=== PATIENT | female | born 1940 | race Caucasian/White ===

== ENCOUNTER → 2016-09-16 | Outpatient (CLI) | payer MEDICARE, OTHER ==
--- NOTE | 2016-09-16 11:01 | XR ---
Lumbosacral spine HISTORY: Back pain with radiation down right side 5 views of the lumbosacral spine No comparisons Bone mineralization is reduced. There is no spondylolysis. No spondylolisthesis. Loss of disc height greatest at L4-5 with associated vacuum phenomenon, endplate sclerosis and spondylosis. Sclerosis pre sent in the posterior elements. There are dense vascular calcifications. IMPRESSION: Degenerative disc disease, facet arthropathy.
--- NOTE | 2016-09-16 11:03 | XR ---
Right hip HISTORY: Back pain radiating down right side 2 views of the right hip No comparisons Bone mineralization, joint spaces and alignment are maintained. Soft tissues within normal limits. IMPRESSION: Normal right hip
--- NOTE | 2016-09-16 11:05 | XR ---
Right knee HISTORY: Pain radiating down right lower extremity 4 views of the right knee No comparisons Patient is status post open reduction internal fixation for proximal right tibial fracture. Bone mine ralization is reduced. Alignment is maintained. Some irregularity noted at the tibial plateau lateral ly. There is some widening of the joint space bilaterally. No evident joint effusion. IMPRESSION: Posttraumatic, postop changes. Osteopenia.
--- NOTE | 2016-09-16 11:05 | XR ---
Right ankle HISTORY: Pain 3 views of the right ankle No comparisons Bone mineralization mildly reduced. Alignment and joint spaces are maintained. No significant soft ti ssue swelling. Small ossific density distal to the medial malleolus is well-corticated and is likely due to remote trauma. IMPRESSION: No acute abnormality. Additional findings above.
== END ==
LOC: RADXRMAIN 09:34
PROVIDERS: ATTEND Family Medicine
DX: M51.36 Other intervertebral disc degeneration, lumbar region (principal); M46.86 Other specified inflammatory spondylopathies, lumbar region; M25.551 Pain in right hip; M85.80 Other specified disorders of bone density and structure, unspecified site; Z79.899 Other long term (current) drug therapy; M25.571 Pain in right ankle and joints of right foot
CPT/HCPCS: 72110; 73502

== ENCOUNTER → 2016-11-30 | Outpatient (CLI) | payer MEDICARE, OTHER ==
[~2016-11-30] MED LIST: SODIUM CHLORIDE 0.9% 250 ML in EMPTY BAG 1 BAG IV PRN; SODIUM CHLORIDE 0.9% 500 ML in EMPTY BAG 1 BAG IV PRN; ZOLEDRONIC ACID 5 MG in SODIUM CHLORIDE 0.9% 100 ML IV NR
[2016-11-30 10:37] VITALS: BP 175/81; PULSE 82; RESP 16; TEMP 98.2
== END ==
LOC: PROCWHC3 09:42
PROVIDERS: ATTEND Family Medicine
DX: M81.0 Age-related osteoporosis without current pathological fracture (principal)
CPT/HCPCS: 96365; J3489

== ENCOUNTER 2020-08-27 20:49 | Emergency (ER) | payer MEDICARE, OTHER ==
--- NOTE | 2020-08-27 22:51 | ED ---
URI HPI - General Chief Complaint: Upper Respiratory Infection Stated Complaint: covid exposure Time Seen by Provider: 08/27/20 21:29 Source: patient Mode of arrival: ambulatory Limitations: no limitations - History of Present Illness Initial Comments: Patient is a 79-year-old female, with history of hypertension, presenting to the emergency department requesting Covid testing. Patient states she was in the ER today with her who tested positive for Covan and she was urged to get tested herself. Patient states last week she did have some minor symptoms including a sore throat, fatigue and some body aches but thought it was because she has not been sleeping very well. Patient states over the last 2 days she did get a lot more sleep and feels better. Currently she has no complaints. She denies any chest pain, no shortness of breath, no cough. She denies any nausea or vomiting. States she has been eating well. She has no further complaints at this time. Upon arrival to the ER, her vital signs are stable. - Related Data Allergies Allergy/AdvReac Type Severity Reaction Status Date / Time Iodine and Iodide Containing Allergy Rash/Hives Verified 08/27/20 20:56 Produc Penicillins Allergy Anaphylaxis Verified 08/27/20 20:56 Review of Systems ROS Statement: Those systems with pertinent positive or pertinent negative responses have been documented in the HPI. ROS Other: All systems not noted in ROS Statement are negative. Past Medical History Past Medical History: Cancer, Hypertension Additional Past Medical History / Comment(s): osteoporosis. Reynaud's. Breast cancer x 2. hypoglycemia History of Any Multi-Drug Resistant Organisms: None Reported Past Surgical History: Adenoidectomy, Bladder Surgery, Section, Hysterectomy, Orthopedic Surgery, Tonsillectomy Additional Past Surgical History / Comment(s): bilateral breast lumpectomy. bladder suspension. R knee surgery. R wrist fracture - no surgery. R ankle fracture - no surgery Past Psychological History: No Psychological Hx Reported Smoking Status: Never smoker Past Alcohol Use History: None Reported Past Drug Use History: None Reported General Exam - General Exam Comments Initial Comments: GENERAL: Patient is well-developed and well-nourished. Patient is nontoxic and in no acute distress. HEAD: Atraumatic, normocephalic. EYES: Pupils equal round and reactive to light, extraocular movements intact, sclera anicteric, conjunctiva are normal. Eyelids were unremarkable. ENT: TMs normal, nares patent, oropharynx clear without exudates. Moist mucous membranes. NECK: Normal range of motion, supple without lymphadenopathy or JVD. LUNGS: Unlabored respirations. Breath sounds clear to auscultation bilaterally and equal. No wheezes rales or rhonchi. HEART: Regular rate and rhythm without murmurs, rubs or gallops. ABDOMEN: Soft, nontender, normoactive bowel sounds. No guarding, no rebound. No masses appreciated. : Deferred MUSCULOSKELETAL: Normal extremities with adequate strength and normal range of motion, no pitting or edema. No clubbing or cyanosis. NEUROLOGICAL: Patient is alert and oriented x 3. Motor and sensory are also intact. Cranial nerves II through XII grossly intact. Symmetrical smile. Normal speech, normal gait. PSYCH: Normal mood, normal affect. SKIN: Warm, Dry, normal turgor, no rashes or lesions noted. Limitations: no limitations Course Vital Signs 08/27/20 08/27/20 08/28/20 20:50 23:15 00:25 Temperature 98.1 F 98.2 F 97.8 F Pulse Rate 80 69 84 Respiratory 20 18 18 Rate Blood Pressure 162/66 160/90 176/85 O2 Sat by Pulse 99 100 99 Oximetry Medical Decision Making - Medical Decision Making Patient is a well-appearing 79-year-old here for Covid testing. Her tested positive today and she was urged to get tested herself. Her rapid Covid is positive. Patient is currently asymptomatic but did have a few symptoms a few days ago. Her vital signs are stable, her exam is unremarkable. She does meet qualifications for BAM infusion, she does agree to this. She received this infusion. Patient developed a mild headache, mild nausea, Tylenol and zofran was given. Patient is stable for discharge. She can follow-up with her regular doctor. Return parameters were discussed with the patient she verbalized understanding. Case discussed with Dr. Parks. - Lab Data Lab Results 08/27/20 Range/Units 20:58 Coronavirus (PCR) Detected A (Not Detectd) Disposition Clinical Impression: COVID-19 Disposition: HOME SELF-CARE Condition: Stable Instructions (If sedation given, give patient instructions): Coronavirus Disease 2019 (COVID-19) Additional Instructions: Please return to the Emergency Department if symptoms worsen or any other concerns. Follow-up with your PCP. Is patient prescribed a controlled substance at d/c from ED?: No Referrals: Juan A Garg DO [Primary Care Provider] - 1-2 days Time of Disposition: 00:44
[2020-08-27] MEDS ORDERED: BAMLANIVIMAB (EUA) 700 MG, ETESEVIMAB (EUA) 1,400 MG in SODIUM CHLORIDE 0.9% 50 ML IVPB ONE (23:00)
[2020-08-27 23:23] VITALS: RESP 18
[2020-08-28 00:27] VITALS: PULSE 84
[2020-08-28] MEDS ORDERED: ONDANSETRON ODT 4 MG TAB PO STA (00:38)
[2020-08-28] MEDS ORDERED: ACETAMINOPHEN TAB 500 MG TAB PO STA (00:38)
[2020-08-28 01:34] VITALS: BP 172/71; TEMP 98
== END 2020-08-28 01:34 | disposition home or self-care (01) ==
LOC: EC 20:49
DX: U07.1 COVID-19 (principal); I10 Essential (primary) hypertension; Z85.3 Personal history of malignant neoplasm of breast; Z88.0 Allergy status to penicillin
CPT/HCPCS: 87635; 99284; 96365; Q0245

== ENCOUNTER 2020-08-29 12:24 | Emergency (ER) | payer MEDICARE, OTHER ==
[2020-08-29 12:47] VITALS: TEMP 97.5
[2020-08-29] MEDS ORDERED: ONDANSETRON 4 MG/2 ML VIAL IVP STA (15:11)
[2020-08-29] MEDS ORDERED: ACETAMINOPHEN TAB 500 MG TAB PO STA (15:11)
[2020-08-29] MEDS ORDERED: KETOROLAC 15 MG/ML 1 ML VIAL IVP STA (15:11)
[2020-08-29] MEDS ORDERED: SODIUM CHLORIDE 0.9% 500 ML 500 ML IV STA (15:11)
--- NOTE | 2020-08-29 15:14 | ED ---
General Adult HPI - General Source: patient Mode of arrival: wheelchair Limitations: no limitations <Clayton Onofre - Last Filed: 08/29/20 17:49> <Sabiha Parks - Last Filed: 09/02/20 02:33> - General Chief complaint: Headache Stated complaint: COVID +, HX BAM, weakness Time Seen by Provider: 08/29/20 14:44 - History of Present Illness Initial comments: 79-year-old female with a past medical history of remote breast cancer, osteoporosis, hypertension presents to the emergency room for a chief complaint of headache. Patient reports that she has coronavirus. Patient reports she does the +2 days ago. She thinks her symptoms started about a week ago. Patient did receive antibody infusion 2 days ago. However patient states her body aches and headache or worsening. States that she is feeling nauseous as well and doesn't have an appetite. she states "my chest is fine." She denies shortness of breath or chest pain. Patient also reports that she hurt her back. She was turning to push her 's wheelchair and had to lift it which caused a strain in her back in the past few days. She denies bladder or bowel changes, saddle anesthesia, weakness of the lower extremities. Patient has no other complaints at this time including shortness of breath, chest pain, abdominal pain, or visual changes. (Clayton Onofre) - Related Data Home Medications Medication Instructions Recorded Confirmed Aspirin EC [Ecotrin Low Dose] 81 mg PO DAILY 08/29/20 08/29/20 Atorvastatin [Lipitor] 10 mg PO HS 08/29/20 08/29/20 Cetirizine HCl [Zyrtec] 10 mg PO HS 08/29/20 08/29/20 Loratadine [Claritin] 10 mg PO DAILY 08/29/20 08/29/20 Metoprolol Succinate [Toprol XL] 25 mg PO HS 08/29/20 08/29/20 Previous Rx's Medication Instructions Recorded HYDROcodone/APAP 5-325MG [Kulm 1 tab PO Q6HR PRN #10 tab 08/29/20 5-325] Ondansetron [Zofran ODT] 4 mg PO Q8HR PRN #15 tab 08/29/20 Allergies Allergy/AdvReac Type Severity Reaction Status Date / Time Iodine and Iodide Containing Allergy Rash/Hives Verified 08/29/20 16:00 Produc Penicillins Allergy Anaphylaxis Verified 08/29/20 16:00 Review of Systems ROS Other: All systems not noted in ROS Statement are negative. <Clayton Onofre P - Last Filed: 08/29/20 17:49> ROS Other: All systems not noted in ROS Statement are negative. <Sabiha Parks A - Last Filed: 09/02/20 02:33> ROS Statement: Those systems with pertinent positive or pertinent negative responses have been documented in the HPI. Past Medical History Past Medical History: Cancer, Hypertension Additional Past Medical History / Comment(s): osteoporosis. Reynaud's. Breast cancer x 2. hypoglycemia, covid + 2020 History of Any Multi-Drug Resistant Organisms: None Reported Past Surgical History: Adenoidectomy, Bladder Surgery, Section, Hysterectomy, Orthopedic Surgery, Tonsillectomy Additional Past Surgical History / Comment(s): bilateral breast lumpectomy. bladder suspension. R knee surgery. R wrist fracture - no surgery. R ankle fracture - no surgery Past Psychological History: No Psychological Hx Reported Smoking Status: Never smoker Past Alcohol Use History: None Reported Past Drug Use History: None Reported <Clayton Onofre P - Last Filed: 08/29/20 17:49> General Exam Limitations: no limitations General appearance: alert, in no apparent distress Head exam: Present: atraumatic, normocephalic, normal inspection Eye exam: Present: normal appearance, PERRL, EOMI. Absent: scleral icterus, conjunctival injection, periorbital swelling ENT exam: Present: normal exam, mucous membranes moist Neck exam: Present: normal inspection. Absent: tenderness, meningismus, lymphadenopathy Respiratory exam: Present: normal lung sounds bilaterally. Absent: respiratory distress, wheezes, rales, rhonchi, stridor Cardiovascular Exam: Present: regular rate, normal rhythm, normal heart sounds. Absent: systolic murmur, diastolic murmur, rubs, gallop, clicks GI/Abdominal exam: Present: soft, normal bowel sounds. Absent: distended, tenderness, guarding, rebound, rigid Extremities exam: Present: other (Strength 5 out of 5 in BLE. Sensation intact. Radial pulses 2+ bilaterally.) Back exam: Present: vertebral tenderness (Minimal.) <Clayton Onofre - Last Filed: 08/29/20 17:49> Course Vital Signs 08/29/20 08/29/20 12:44 18:24 Temperature 97.5 F L Pulse Rate 83 62 Respiratory 18 16 Rate Blood Pressure 134/66 150/79 O2 Sat by Pulse 99 100 Oximetry Medical Decision Making - Lab Data Result diagrams: 08/29/20 15:11 08/29/20 15:11 <Clayton Onofre - Last Filed: 08/29/20 17:49> - Lab Data Result diagrams: 08/29/20 15:11 08/29/20 15:11 <Sabiha Parks - Last Filed: 09/02/20 02:33> - Medical Decision Making Vitals are stable. Patient well-appearing. Patient does have low back pain with point tenderness. CBC unremarkable. CMP does show some evidence of dehydration, patient was given a liter of fluids. X-ray of the chest shows a lobular density right midlung. Recommend CT to exclude neoplasm. This was obtained which showed old granulomatous disease and pleural thickening and calcification consistent with plaque formation. No suspicious masses of the lungs. Patient will follow up with primary care for this. X-ray of the lumbar spine did show a age indeterminate fracture. Therefore a CT of the lumbar spine was obtained. This did show acute mild compression fracture of L3 vertebrae with some mild fragment extension into the spinal canal. There is 25% narrowing of the canal due to the burst component. No weakness in the bilateral legs. No numbness or tingling anywhere from the waist down. No saddle anesthesia. Patient is able to ambulate. At this time I discussed case with Dr. Salcedo who does request patient follows up in the office in 10 days as she is currently COVID Positive. Patient will be given a prescription for TLSO brace. She states her son is around and is currently staying with her, can help her. She currently feeling much better. Headache is much improved. Patient can be discharged home. (Clayton Onofre) I was available for consultation in the emergency department. The history and physical exam were done by the midlevel provider. I was consulted for this patients care. I reviewed the case with the midlevel provider and based on their presentation of the patient, I agree with the assessment, medical decision making and plan of care as documented. Chart was dictated using Dragon dictation software. Attempts were made to correct any dictation errors however some typographical errors may persist. Patient was seen during a national state of emergency due to the Covid-19 pandemic. (Sabiha Parks) - Lab Data Lab Results 08/29/20 08/29/20 Range/Units 15:11 15:11 WBC 9.2 (3.8-10.6) k/uL RBC 3.95 (3.80-5.40) m/uL Hgb 12.3 (11.4-16.0) gm/dL Hct 36.3 (34.0-46.0) % MCV 91.8 (80.0-100.0) fL MCH 31.1 (25.0-35.0) pg MCHC 33.8 (31.0-37.0) g/dL RDW 13.1 (11.5-15.5) % Plt Count 290 (150-450) k/uL MPV 8.4 Neutrophils % 86 % Lymphocytes % 8 % Monocytes % 4 % Eosinophils % 1 % Basophils % 0 % Neutrophils # 7.9 H (1.3-7.7) k/uL Lymphocytes # 0.7 L (1.0-4.8) k/uL Monocytes # 0.4 (0-1.0) k/uL Eosinophils # 0.1 (0-0.7) k/uL Basophils # 0.0 (0-0.2) k/uL Sodium 139 (137-145) mmol/L Potassium 4.4 (3.5-5.1) mmol/L Chloride 106 (98-107) mmol/L Carbon Dioxide 23 (22-30) mmol/L Anion Gap 10 mmol/L BUN 22 H (7-17) mg/dL Creatinine 1.07 H (0.52-1.04) mg/dL Est GFR (CKD-EPI)AfAm 58 (>60 ml/min/1.73 sqM) Est GFR (CKD-EPI)NonAf 51 (>60 ml/min/1.73 sqM) Glucose 104 H (74-99) mg/dL Calcium 10.0 (8.4-10.2) mg/dL Total Bilirubin 0.6 (0.2-1.3) mg/dL AST 30 (14-36) U/L ALT 18 (4-34) U/L Alkaline Phosphatase 110 (38-126) U/L Total Protein 7.2 (6.3-8.2) g/dL Albumin 4.1 (3.5-5.0) g/dL Disposition Is patient prescribed a controlled substance at d/c from ED?: No Time of Disposition: 17:49 <Clayton Onofre - Last Filed: 08/29/20 17:49> <Sabiha Parks - Last Filed: 09/02/20 02:33> Clinical Impression: COVID-19, L3 vertebral fracture, Dehydration Disposition: HOME SELF-CARE Condition: Good Instructions (If sedation given, give patient instructions): Coronavirus Disease 2019 (COVID-19), Vertebral Compression Fracture (ED) Additional Instructions: Please take Kulm as needed for pain. Wear brace while awake and moving Please follow-up with orthopedics. Since you have coronavirus they would like to see you in 10 days. Follow-up with primary care as well. Continue to quarantine otherwise. Return to the emergency room for any worsening symptoms such as wors ening pain, weakness of the legs, or shortness of breath Prescriptions: HYDROcodone/APAP 5-325MG [Kulm 5-325] 1 tab PO Q6HR PRN #10 tab PRN Reason: Pain Ondansetron [Zofran ODT] 4 mg PO Q8HR PRN #15 tab PRN Reason: Nausea Referrals: Juan A Garg DO [Primary Care Provider] - 1-2 days Bob Salcedo MD [STAFF PHYSICIAN] - 1-2 days
[2020-08-29 15:49] LABS: Basophils % (A) 0 %; Eosinophils # (A) 0.1 k/uL (0-0.7); Eosinophils % (A) 1 %; HCT 36.3 % (34.0-46.0); HGB 12.3 gm/dL (11.4-16.0); Lymphocytes # (A) 0.7 k/uL (1.0-4.8); Lymphocytes % (A) 8 %; MCH 31.1 pg (25.0-35.0); MCHC 33.8 g/dL (31.0-37.0); MCV 91.8 fL (80.0-100.0); Mean Platelet Volume 8.4; Monocytes # (A) 0.4 k/uL (0-1.0); Monocytes % (A) 4 %; Neutrophils # (A) 7.9 k/uL (1.3-7.7); Neutrophils % (A) 86 %; Platelet Count 290 k/uL (150-450); RBC 3.95 m/uL (3.80-5.40); RDW 13.1 % (11.5-15.5); WBC 9.2 k/uL (3.8-10.6)
--- NOTE | 2020-08-29 15:54 | XR ---
EXAMINATION TYPE: XR chest 2V DATE OF EXAM: 08/29/2020 COMPARISON: None INDICATION: Pain TECHNIQUE: Frontal and lateral views of the chest are obtained. FINDINGS: The heart size is normal. The pulmonary vasculature is normal. There is a 3.8 x 2.4 cm lobular density within the right mid lung field on the frontal projection. Th is could be pleural calcification. Additional workup however is recommended with CT chest. Couple sma ll nodular densities overlying the left heart could be small granuloma. Multiple surgical clips are w ithin the right axillary region.. IMPRESSION: 1. Lobular density right midlung on the frontal projection. Additional workup with CT chest recommend ed neoplasm is not excluded. 2. No suspicious acute pulmonary changes.
[2020-08-29 15:59] LABS: Albumin 4.1 g/dL (3.5-5.0); Potassium 4.4 mmol/L (3.5-5.1); Total Bilirubin 0.6 mg/dL (0.2-1.3); Total Protein 7.2 g/dL (6.3-8.2)
--- NOTE | 2020-08-29 16:02 | XR ---
EXAMINATION TYPE: XR lumbar spine 2 or 3V DATE OF EXAM: 08/29/2020 Comparison: 09/16/2016 Clinical History: 79-year-old female M54.5, low back pain Findings: 5 lumbar type vertebral bodies. Moderately advanced discogenic degenerative change L4-L5 with loss of disc height and endplate irregularity and sclerosis. Fusiform dilatation of the mid abdominal aorta to 3.0 cm with dense atherosclerotic calcifications throughout. Hypertrophic facet arthropathy mid to lower lumbar spine. Alignment is maintained. There is mild superior endplate deformity at L3 which i s age indeterminate but new from 2017. Impression: 1. Mild superior endplate deformity of L3 represents an age indeterminate endplate fracture but is no daniela to be new from 2017. Correlate for any focal pain at this level. No significant retropulsion into the spinal canal. 2. Progressive moderate to advanced degenerative disc disease L4-L5. Hypertrophic facet arthropathy m id to lower lumbar spine with normal alignment.
--- NOTE | 2020-08-29 16:54 | CT ---
EXAMINATION TYPE: CT lumbar spine wo con DATE OF EXAM: 08/29/2020 COMPARISON: None HISTORY: fracture CT DLP: 601.3 mGycm Automated exposure control for dose reduction was used. Images were obtained from the level of T11-S3 vertebra without contrast. Normal alignment. There is L3 compression deformity with biconcave changes. There is step deformity o n the posterior aspect of the L3 vertebral body consistent with an acute compression fracture. There is 25% loss of height. There is narrowing of L4-5 disc with spur formation. There is no lumbar paraspinal mass. Abdominal aorta is atheromatous. There is no retroperitoneal adams opathy. There are calcified splenic granulomata. There are numerous calcified hepatic granulomata. Sa croiliac joints are intact. I see no focal bone destruction. There is some facet arthropathy at L5-S1 and L4-5. The posterior elements are intact. There is large posterior L5-S1 lumbar disc herniation on the right side extending into the neural for amen. IMPRESSION: Acute mild compression fracture of L3 vertebra with some mild fragment extension into the spinal chelsea l. There is approximate 25% narrowing of the canal due to the burst component. There is large posterior lateral L5-S1 disc herniation into the right side neural foramen. Mild posterior disc bulging at L4-5 with some facet arthropathy and ligamentum flavum thickening. The re is a mild relative L4-5 spinal stenosis.
--- NOTE | 2020-08-29 17:14 | CT ---
EXAMINATION TYPE: CT chest wo con DATE OF EXAM: 08/29/2020 COMPARISON: None HISTORY: mass CT DLP: 152.9 mGycm Automated exposure control for dose reduction was used. Images obtained from the thoracic inlet to the diaphragm without contrast. Thoracic aorta is atheromatous. There are calcified paratracheal lymph nodes. There are densely calci fied left bronchial lymph nodes. There is coronary artery calcification. Heart size is fairly normal. Thoracic aorta shows no aneurysm. There is some 2 x 1 cm area of pleural thickening and calcification on the left anterior chest wall. There is 3 x 1.2 cm area of dense calcification apparently involving the anterior right fourth rib. T his appears to account for the masslike density on the chest x-ray today. There is no pleural effusion. There is no pericardial effusion. There is 1 cm densely calcified granu kingsley in the left lower lobe. The thoracic spine is intact. There is no compression fracture. Sternum is intact. IMPRESSION: Old granulomatous disease. Pleural thickening and calcification consistent with plaque formation on t he left anterior chest wall. No suspicious mass within the lungs. Right breast calcification could relate to old surgery.
[2020-08-29 18:29] VITALS: BP 150/79; PULSE 62; RESP 16
== END 2020-08-29 18:33 | disposition home or self-care (01) ==
LOC: EC 12:24
DX: U07.1 COVID-19 (principal); S32.031A Stable burst fracture of third lumbar vertebra, initial encounter for closed fracture; I25.10 Atherosclerotic heart disease of native coronary artery without angina pectoris; I10 Essential (primary) hypertension; Z88.0 Allergy status to penicillin; X50.9XXA Other and unspecified overexertion or strenuous movements or postures, initial encounter
CPT/HCPCS: 36415; 80053; 85025; 72100; 71046; 72131; 71250; 99284; 96374; 96375; J2405; J1885

== ENCOUNTER → 2020-09-18 | Outpatient (CLI) | payer MEDICARE, OTHER ==
--- NOTE | 2020-09-18 22:20 | NM ---
EXAMINATION TYPE: NM bone scan whole body DATE OF EXAM: 09/18/2020 COMPARISON: CT lumbar spine August 29, 2020 HISTORY: Low back pain for 3 weeks after lifting injury. Spinal stenosis, spondylosis, disc displacem ent, history of breast cancer 2005. Delayed whole-body scanning was performed following the injection of 22.7 mCi Tc 99m MDP. Images acq uired 3 hours post injection. Whole body images in anterior posterior projection along with additiona l spot images of the thorax and abdomen. FINDINGS: There is horizontal increased radiotracer uptake at L3 level corresponding site of acute compression type fracture on recent CT. Small focus of increased radiotracer uptake left lateral mid rib should b e correlated for additional acute posttraumatic fracture. IMPRESSION: As above.
== END | disposition home or self-care (01) ==
LOC: RADNMMAIN 10:46
PROVIDERS: ATTEND Physical Medicine & Rehabilitation
DX: M54.5 Low back pain (principal); Z85.3 Personal history of malignant neoplasm of breast
CPT/HCPCS: 78306; A9503

== ENCOUNTER → 2020-10-25 | Outpatient (CLI) | payer MEDICARE, OTHER ==
[2020-10-25 11:50] LABS: HCT 38.4 % (37.2-46.3); HGB 11.8 g/dL (12.0-15.0); MCH 29.7 pg (27.0-32.0); MCHC 30.7 g/dL (32.0-37.0); MCV 96.7 fL (80.0-97.0); Mean Platelet Volume 11.4 fL (9.5-12.2); Platelet Count 306 X 10*3/uL (140-440); RBC 3.97 X 10*6/uL (4.10-5.20); RDW 13.5 % (11.5-14.5); WBC 5.87 X 10*3/uL (4.50-10.00)
[2020-10-25 12:08] LABS: Albumin 4.4 g/dL (3.80-4.90); Albumin/Globulin Ratio 1.57 (1.60-3.17); Anion Gap 8.9 mmol/L (4.00-12.00); BUN/Creat Ratio 25.56 Ratio (12.00-20.00); Calcium 10.6 mg/dL (8.7-10.3); Carbon Dioxide 29.1 mmol/L (21.6-31.8); Globulin 2.8 g/dL (1.6-3.3); LDL Cholesterol,Calculated 131.4 mg/dL (0.0-131.0); Non-African American GFR(CKD) 61.2 (60.0-200.0); Potassium 4.3 mmol/L (3.5-5.5); Total Bilirubin 0.5 mg/dL (0.2-1.2); Total Protein 7.2 g/dL (6.2-8.2); VLDL Calculation 14.6 mg/dL (5.00-40.00)
== END | disposition home or self-care (01) ==
LOC: LABWHC1 08:17
PROVIDERS: ATTEND Family Medicine
DX: E78.5 Hyperlipidemia, unspecified (principal); M80.88XA Other osteoporosis with current pathological fracture, vertebra(e), initial encounter for fracture; I10 Essential (primary) hypertension
CPT/HCPCS: 36415; 80053; 80061; 85027; 85379

== ENCOUNTER → 2020-10-28 | Outpatient (CLI) | payer MEDICARE, OTHER ==
--- NOTE | 2020-10-28 12:01 | US ---
EXAMINATION TYPE: US venous doppler duplex LE DATE OF EXAM: 10/28/2020 11:15 AM COMPARISON: NONE CLINICAL HISTORY: R79.1 elevated d dimer. elevated D-Dimer, right leg pain SIDE PERFORMED: bilateral TECHNIQUE: The lower extremity deep venous system is examined utilizing real time linear array sonog stephanie with graded compression, doppler sonography and color-flow sonography. VESSELS IMAGED: Common Femoral Vein Deep Femoral Vein Greater Saphenous Vein * Femoral Vein Popliteal Vein Small Saphenous Vein * Proximal Calf Veins (* superficial vessels) Right Leg: no evidence of DVT Left Leg: no evidence of DVT IMPRESSION: Grayscale, color doppler, spectral doppler imaging performed of the deep veins of the lo wer extremities. There is normal flow, compressibility, vascular waveforms.
== END | disposition home or self-care (01) ==
LOC: RADUSWWP 10:55
PROVIDERS: ATTEND Family Medicine
DX: R79.1 Abnormal coagulation profile (principal); M79.604 Pain in right leg
CPT/HCPCS: 93970

== ENCOUNTER → 2020-12-23 | Outpatient (CLI) | payer MEDICARE, OTHER ==
--- NOTE | 2020-12-23 15:21 | XR ---
EXAMINATION TYPE: XR chest 2V DATE OF EXAM: 12/23/2020 COMPARISON: 08/29/2020 INDICATION: Presurgery Surgery TECHNIQUE: Frontal and lateral views of the chest are obtained. FINDINGS: The heart size is normal. The pulmonary vasculature is normal. There are persistent densities within the bilateral lungs. In the left base this measures 0.6 cm. Wit hin the right midlung this measures 3.6 x 2.4 cm which is stable.. Surgical clips in the right axillary region. Right breast may be smaller than the left. Some calcifie d hilar adenopathy may be present on the left. IMPRESSION: 1. No suspicious changes chest x-ray. 2. Postsurgical and prior lung densities evident on the frontal projections
== END | disposition home or self-care (01) ==
LOC: LABPAT 12:36
PROVIDERS: ATTEND Orthopaedic Surgery Orthopaedic Surgery of the Spine
DX: Z01.818 Encounter for other preprocedural examination (principal); S32.039A Unspecified fracture of third lumbar vertebra, initial encounter for closed fracture; Z20.822 Contact with and (suspected) exposure to COVID-19; X58.XXXA Exposure to other specified factors, initial encounter
CPT/HCPCS: 71046; U0003; C9803

== ENCOUNTER 2020-12-29 07:12 | Day surgery (SDC) | payer MEDICARE, OTHER ==
[2020-12-26 11:40] VITALS: BMI 21.0
[~2020-12-29 07:12] MED LIST changes: +CLINDAMYCIN 900 MG in DEXTROSE 5% IN WATER 50 ML IVPB PRN; +DEXAMETHASONE SOD PHOSPHATE 4 MG/ML 1 ML VIAL IV ONE; +LIDOCAINE 1% (10MG/ML) FOR IV START INTRADERMA PRN; +ONDANSETRON 4 MG/2 ML VIAL IVP ONE; -SODIUM CHLORIDE 0.9% 250 ML in EMPTY BAG 1 BAG IV PRN; -SODIUM CHLORIDE 0.9% 500 ML in EMPTY BAG 1 BAG IV PRN; -ZOLEDRONIC ACID 5 MG in SODIUM CHLORIDE 0.9% 100 ML IV NR
[2020-12-29] MEDS ORDERED: LACTATED RINGERS 1,000 ML IV ONE ×2 (07:30→09:56)
[2020-12-29 07:42] LABS: Glucose,Whole Blood 90 mg/dL (75-99)
[2020-12-29] MEDS ORDERED: PHENYLEPHRINE-0.9% NACL SYG 1,000 MCG/10 ML SYRINGE ONE (08:59)
[2020-12-29] MEDS ORDERED: LIDOCAINE 1% INJ 10MG/ML (20 ML MDV) ONE (08:59)
[2020-12-29] MEDS ORDERED: fentaNYL (PF) 50 MCG/ML 2 ML AMP ONE (08:59)
[2020-12-29] MEDS ORDERED: MIDAZOLAM 2 MG/2 ML VIAL ONE (08:59)
[2020-12-29] MEDS ORDERED: PROPOFOL 10 MG/ML 20 ML VIAL IV ONE (08:59)
[2020-12-29] MEDS ORDERED: SUCCINYLCHOLINE CHLORIDE VIAL 200 MG/10 ML VIAL IV ONE (08:59)
[2020-12-29] MEDS ORDERED: LIDOCAINE 1%-EPI 1:100,000 20 ML VIAL SQ ONE ×2 (09:35)
[2020-12-29] MEDS ORDERED: IOPAMIDOL M200 10 ML VIAL MISCELLANE ONE (09:35)
[2020-12-29] MEDS ORDERED: HYDROcodone/APAP 5-325MG 1 EACH TAB PO PRN ×2 (10:07→10:08)
[2020-12-29] MEDS ORDERED: BENZOCAINE/MENTHOL LOZENG 1 EACH LOZENGE MUCOUS MEM PRN (10:07)
[2020-12-29] MEDS ORDERED: traMADol 50 MG TAB PO PRN (10:08)
[2020-12-29] MEDS ORDERED: CYCLOBENZAPRINE 5 MG TAB PO PRN (10:08)
[2020-12-29] MEDS ORDERED: ONDANSETRON 4 MG/2 ML VIAL IVP PRN (10:08)
--- NOTE | 2020-12-29 10:15 | P.OP ---
Date of Procedure: 12/29/20 Preoperative Diagnosis: L3 traumatic compression fracture, low back pain, Postoperative Diagnosis: Same Anesthesia: GETA Pathology: other (L3 vertebral body biopsy sent to pathology) Condition: stable Disposition: PACU Description of Procedure: BRIEF OPERATIVE NOTE Preoperative Diagnosis: Vertebral traumatic compression fracture L3, low back pain Postoperative Diagnosis: Same Procedure: Kyphoplasty of L3 Vertebral body biopsy of L3 Use of biplanar fluoroscopic guidance Surgeon: Dr. Lara Trust Clerk: Jairo Myers is present throughout the entire the case persistence during positioning, dissection, exposure, visualization, and all crucial elements of the case as well as closure. Anesthesia: General anesthesia Estimated blood loss: Less than 10 mL Specimen: Vertebral body biopsy of L3 sent to pathology in formalin Complications: None apparent Components implanted: Bone cement Disposition: To recovery room in good stable condition. OPERATIVE INDICATIONS The patient has been having issues in their back ever since sustaining an injury. The patient has been through conservative treatment. She has been using bracing and conservative care with medication and activity modification over the past few months. She had some improvement but was having continued pain at her lower back which was somewhat debilitating for her. She continued have significant pain despite conservative treatment and further imaging showed continued evidence of fracture and delayed healing due to her injury. They attempted conservative care with bracing however they're not having any benefit despite brace use. They continue to have significant pain and debility due to their fracture. We discussed various treatment options including surgery, and the patient wishes to proceed with surgery We discussed the risk, patient's alternatives and benefits of surgery including but not limited to, risk of bleeding risk of infection, risk of need for further surgery, risk of decreased, loss of motion, loss of function, cement extravasation, nerve damage, paralysis, heart attack, blindness and . OPERATIVE SUMMARY After discussing all the risks, patient alternatives and benefits at length, the patient elected to proceed with surgical intervention, signed informed consent, and presented for their procedure. The patient was seen and examined in the preoperative holding area and the surgical site was marked. The patient was given antibiotics and brought to the operating room. The patient was sedated and intubated by anesthesia in standard fashion. The patient was positioned on to the operating room table in a prone position on the appropriate well-padded and well molded bilateral chest rolls. We were careful to pad any bony prominences and pressure points. We were careful to maintain the patient's cervical spine and good neutral alignment and position throughout. We used 2 C-arm machines to establish biplanar fluoroscopic guidance in AP and lateral positions. We were able to localize the fractures appropriately. The patient was prepped and draped in a normal standard fashion. An appropriate timeout and keystone protocol performed. We were able to proceed with the surgery. The local wound area was infiltrated with local anesthetic. An incision was made over the lateral aspect of the pedicle over the appropriate levels with a small 2 mm stab incision at L3. Intraoperative fluoroscopy was taken which showed a marker at the appropriate level. With the appropriate level positively confirmed at L3, I was able to position a sharp trocar over the lateral aspect of the pedicle. As able to advance the trocar into the pedicle and into the posterior aspect of vertebral body being careful to avoid penetration cephalad caudad or medially. The trocar was placed appropriately into the posterior aspect of vertebral body at the appropriate levels. This was confirmed with C-arm guidance. With the trocar intact I was then able to take a bone biopsy with a biopsy punch and a bony drill. The biopsy specimen was passed off to be sent to pathology in formalin. I was then able to place the kyphoplasty balloon within the vertebral body. The position was checked on C-arm. I was able to inflate the balloon under low pressure and visualization with C-arm. The balloon was well enclosed within the vertebral body. The cement was prepared. With the cement at appropriate working condition the balloons were deflated and removed. I was able to place bony cement with trocar with the cement delivery device under low pressure. It had good fill within the vertebral body. The cement removed across the midline and underneath the superior endplate where we had hoped with good fill within the vertebral body. There is no evidence of any extravasation of the cement posteriorly toward the canal. The cement was well contained at the appropriate levels. The cement was allowed to cure appropriately. The trochars removed and final images were taken on C-arm. This showed the cement at the appropriate levels at L3. We were able to proceed with closure. The wound was cleaned and dried and dressed with the appropriate dressing. The drapes were broken down. The patient was gently rolled back onto their hospital bed being careful to maintain their cervical spine and good neutral alignment and position. They were woken up by anesthesia, extubated, and brought to the recovery room in good stable condition. The patient will be admitted to the hospital for observation and for appropriate postoperative care, medical management and monitoring. We will continue to follow them closely about the postoperative course.
[2020-12-29] MEDS: KETOROLAC 15 MG/ML 1 ML VIAL IVP PRN ×2 (10:44→16:23)
[2020-12-29] MEDS: HYDROmorphone 0.5 MG/0.5 ML SYRINGE IVP PRN ×2 (10:53→11:29)
--- NOTE | 2020-12-29 12:15 | FL ---
Fluoroscopy History: KYPHOPLASTY 63 SEC FL
--- NOTE | 2020-12-29 12:16 | P.PN ---
Progress Note - Text Progress Note Date: 12/29/20 The patient is seen and examined again in the postanesthesia care unit. She says she has some new complaints of some tingling in her bilateral upper extremities and her right leg. She says these were not present prior. She denies severe pain with those but she says overall she is not feeling good and she is is experiencing some headaches. Headaches are not positional. She is not having new complaints in her left lower extremity. She denies any shortness of breath or chest pain. On exam she is afebrile. Her vital signs are stable. Her pulse is 70. She saturating 100% on room air her blood pressure is 145/70. She is able to open her eyes and her pupils are equal. She is somewhat tired after having her anesthesia and having some pain medicine with Dilaudid. She is able to stick her tongue out symmetrically. She is able to shrug her shoulders. She moves her upper extremities symmetrically with equal strength bilaterally. Her back incisions clean and dry. Her abdomen soft nontender chest is good excursion deep inspection expiration. Lower extremity have sustained dorsal flexion plantar flexion and EHL intact bilaterally. I do not see any focal deficits at this point in recovery. She does however wake up only momentarily and then fall back asleep. Assessment and plan Postoperative day #0 status post kyphoplasty at L3 for vertebral compression fracture. The procedure is performed with a 2 mm incision on the left side and went smoothly without any evidence of any complication or issue. I do not think that the procedure itself accounts for her specific new complaints. The site appears stable. The patient has some new complaints of bilateral upper extremity numbness and right lower extremity numbness and tingling. She says she has a headache as well. This does not seem to be positional and does not seem to be a spinal headache in particular. She is still somewhat in the recovery phase from her postanesthesia we will see how she does as she continues to wake up. She's not having any focal deficit that I can tell at this point and her vitals have remained stable. We may have to keep her overnight for observation and evaluation and I think it would be beneficial to have medicine see her for medical management and consider further workup if these symptoms persist. If she has any worsening pain she may need further testing and evaluation and treatment. I'll discuss this with her family as well as she had been planning to be discharged home today may need to stay overnight if she's not recovering appropriately through the afternoon.
[2020-12-29] MEDS: LACTATED RINGERS 1,000 ML IV SCH ×2 (16:00→17:43)
--- NOTE | 2020-12-29 20:04 | P.CONS ---
History of Present Illness - Reason for Consult Consult date: 12/29/20 Requesting physician: Dieter Lara - Chief Complaint Medical management, - History of Present Illness This is a 80-year-old pleasant lady, known history of hyperlipidemia, osteoporosis, ALLERGIC rhinitis, was cleared by her PCP, Dr. Garg. To undergo L3 biopsy and kyphoplasty performed on 12/29/2010. She has a history of breast cancer in 2005, Raynaud's disease, osteoporosis, covid infection in August 2020, received bamlanivimab monoclonal antibody. Patient's seen for initial consultation today, for medical management. Patient is in at bedside, slightly drowsy, however she answers to questions appropriately. Patient did not bring her hearing aid today, however she does not complain of any chest pain shortness of breath and difficulty breathing, pain in the back is controlled, patient has some lightheadedness, when standing up. She is receiving narcotics, for pain management,, vitals are 135-160 systolic, with a heart rate between 50 [birth year]1978, temperature of 98.5, 95-99% on room air, labs, PTT of 22 dose CBC for review. Review of Systems Constitutional: Reports as per HPI, Reports weight loss, Denies anorexia, Denies chills, Denies chronic headaches, Denies chronic pain, Denies daytime sleepiness, Denies fatigue, Denies fever, Denies lethargy, Denies malaise, Denies night sweats, Denies poor appetite, Denies sweats, Denies weakness, Denies weight gain Ears, nose, mouth and throat: Reports as per HPI, Denies ant. neck pain, Denies bleeding gums, Denies dental pain, Denies dysphagia, Denies epistaxis, Denies headache, Denies hoarseness, Denies mouth pain, Denies nasal congestion, Denies nasal discharge, Denies neck fullness/pressure, Denies neck lump, Denies nose pain, Denies odynophagia, Denies post-nasal drip, Denies sinus pain, Denies sinus pressure, Denies swelling in mouth, Denies swelling in throat, Denies sore throat, Denies vertigo, Denies voice changes Cardiovascular: Reports as per HPI Respiratory: Reports as per HPI, Denies cough with sputum, Denies dyspnea, Denies hemoptysis, Denies home oxygen, Denies pain on inspiration, Denies wheezing Gastrointestinal: Reports as per HPI, Denies abdominal pain, Denies belching, Denies bloating, Denies BRBPR, Denies change in bowel habits, Denies coffee ground emesis, Denies constipation, Denies diarrhea, Denies dyspepsia, Denies early satiety, Denies excessive gas, Denies heartburn, Denies hematemesis, Denies hematochezia, Denies indigestion, Denies jaundice, Denies lactose intolerance, Denies loss of appetite, Denies melena, Denies nausea, Denies vomiting Genitourinary: Reports as per HPI, Denies flank pain, Denies urgency Menstruation: Reports as per HPI Musculoskeletal: Reports as per HPI, Reports fractures Integumentary: Reports as per HPI Neurological: Reports as per HPI, Denies aphasia, Denies ataxia, Denies balance difficulties, Denies burning pain, Denies change in mentation, Denies change in smell/taste, Denies change in speech, Denies confusion, Denies convulsions, Denies double vision, Denies gait dysfunction, Denies head injury, Denies headaches, Denies hearing difficulties, Denies lack of coordination, Denies loss of vision, Denies memory loss, Denies migraines, Denies motor disturbance, Denies numbness, Denies paralysis, Denies paresthesias, Denies seizures, Denies sensory deficit, Denies spasticity, Denies syncope, Denies tic, Denies tingling, Denies transient paralysis, Denies tremors, Denies vertigo, Denies weakness, Denies visual changes Psychiatric: Reports as per HPI, Denies anxiety, Denies disorientation, Denies hallucinations, Denies insomnia, Denies irritability Endocrine: Reports as per HPI Hematologic/Lymphatic: Reports as per HPI Allergic/Immunologic: Reports as per HPI, Denies allergic rhinitis, Denies anaphylaxis, Denies angioedema, Denies gluten intolerance, Denies persistent infections, Denies seasonal allergies, Denies urticaria, Denies wheezing Past Medical History Past Medical History: Cancer, Hypertension Additional Past Medical History / Comment(s): compression fx-has back brace on. osteoporosis. Reynaud's. Breast cancer x 2-radiation received 2005. hypoglycemia. covid + August 2020-received BAM tx History of Any Multi-Drug Resistant Organisms: None Reported Past Surgical History: Adenoidectomy, Bladder Surgery, Section, Hysterectomy, Orthopedic Surgery, Tonsillectomy Additional Past Surgical History / Comment(s): bilateral breast lumpectomy. bladder suspension. R knee surgery. R wrist fracture - no surgery. R ankle fracture - no surgery Past Anesthesia/Blood Transfusion Reactions: No Reported Reaction Smoking Status: Never smoker - Past Family History Mother Family Medical History: Cancer Medications and Allergies Home Medications Medication Instructions Recorded Confirmed Type Aspirin EC [Ecotrin Low Dose] 81 mg PO DAILY 08/29/20 12/26/20 History Atorvastatin [Lipitor] 10 mg PO HS 08/29/20 12/26/20 History Cetirizine HCl [Zyrtec] 10 mg PO HS 08/29/20 12/26/20 History HYDROcodone/APAP 5-325MG [Mineral 1 tab PO Q6HR PRN #10 tab 08/29/20 12/26/20 Rx 5-325] Loratadine [Claritin] 10 mg PO DAILY 08/29/20 12/26/20 History Metoprolol Succinate [Toprol XL] 25 mg PO HS 08/29/20 12/26/20 History Azithromycin 250 mg PO DAILY 12/26/20 12/26/20 History HYDROcodone/APAP 5-325MG [Mineral 5] 1 each PO Q6HR PRN #28 tab 12/29/20 Rx Allergies Allergy/AdvReac Type Severity Reaction Status Date / Time Iodine and Iodide Containing Allergy Rash/Hives Verified 12/26/20 11:22 Produc Penicillins Allergy Anaphylaxis Verified 12/26/20 11:22 Physical Exam Vitals: Vital Signs Temp Pulse Resp BP Pulse Ox 12/29/20 15:34 98.5 F 79 16 143/76 99 12/29/20 14:30 60 16 160/77 95 12/29/20 14:00 57 L 16 178/79 94 L 12/29/20 13:30 64 16 135/64 99 12/29/20 13:00 64 16 134/63 97 12/29/20 12:30 67 16 151/67 97 12/29/20 12:00 69 16 149/70 99 12/29/20 11:45 68 16 164/74 100 12/29/20 11:30 69 16 143/67 98 12/29/20 11:15 71 16 143/67 100 12/29/20 11:00 73 16 140/62 98 12/29/20 10:44 84 16 147/69 100 12/29/20 10:28 67 16 148/67 100 12/29/20 10:13 97.2 F L 77 16 166/76 100 12/29/20 07:28 97.5 F L 82 18 195/85 100 Intake and Output 12/29/20 12/29/20 12/29/20 06:59 14:59 22:59 Intake Total 1656 820 Output Total 401 Balance 1255 820 Intake: IV 1656 Intake, IV Titration 240 Amount Lactated Ringers 1,000 ml 240 @ 0 mls/hr IV .REQQI ONE Rx#:[id number] Oral 580 Output: Urine 400 Estimated Blood Loss 1 Other: # Voids 1 Weight 49.9 kg - Constitutional General appearance: cooperative, no acute distress - EENT Eyes: anicteric sclerae, EOMI, PERRLA, dentition normal ENT: NA/AT, normal oropharynx - Respiratory Respiratory: bilateral: CTA, negative: diminished, dullness - Cardiovascular Rhythm: regular Heart sounds: normal: S1, S2 Abnormal Heart Sounds: no systolic murmur, no diastolic murmur, no rub, no S3 Gallop, no S4 Gallop, no click, no other - Gastrointestinal General gastrointestinal: normal bowel sounds, soft - Integumentary Integumentary: decreased turgor, normal - Neurologic Neurologic: CNII-XII intact - Musculoskeletal Musculoskeletal: strength equal bilaterally - Psychiatric Psychiatric: A&O x's 3, appropriate affect, intact judgment & insight Results Labs: Laboratory Results APTT 22.0 sec (22.0-30.0) 12/29/20 07:39 POC Glucose (mg/dL) 90 mg/dL (75-99) 12/29/20 07:39 POC Glu Splunk Developer ID Re Pak 12/29/20 07:39 Assessment and Plan Plan: 1. Subacute L3 fracture, September 2020, requiring L3 biopsy and kyphoplasty, performed on 12/29/2020, postoperative day #0, patient has history of breast cancer in 2005, pain management is controlled, no current anticipated problems, patient will be seen by PT OT as well, narcotics for pain management, start vitamin D supplementation, patient is on incentive spirometry as well. 2. Hyperlipidemia, on Lipitor 10 2. Breast cancer, 2005, with bilateral rest lumpectomy, and radiation treatments checked for LDH, and alkaline phosphatase level breast surveillance an outpatient, with PCP, or if she still sees a surgeon for it 4. ALLERGIC rhinitis, on Claritin, 5. Osteoporosis, with current fracture, start vitamin D supplementation, patient would need agents for osteoporosis this could be followed as an outpatient, 6. Personal history of covid infection, received Bamlanivimab in August 2020 DVT prophylaxis, with Lovenox 40 mg daily Thank you Dr. Lara in allowing us to care for your patient per care. Patient. We'll going to follow her which are October this current hospitalization, further recommendations to follow,
[2020-12-29] MEDS ORDERED: ATORVASTATIN 10 MG TAB PO SCH (21:00)
[2020-12-29] MEDS ORDERED: METOPROLOL SUCCINATE (ER) 25 MG TAB.ER.24H PO SCH (21:00)
[2020-12-29] MEDS ORDERED: LORATADINE 10 MG TAB PO SCH (21:00)
--- NOTE | 2020-12-29 22:06 | XR ---
EXAMINATION TYPE: XR lumbar spine 2 or 3V DATE OF EXAM: 12/29/2020 COMPARISON: NONE HISTORY: Kyphoplasty. TECHNIQUE: Single view FINDINGS: A single lateral fluoroscopic image shows bone cement in the L3 vertebral body. There is ap proximate 40% compression fracture of the superior endplate of L3 vertebra. Vertebra have normal alig nment. IMPRESSION: No complicating process seen.
[2020-12-30 05:39] LABS: Basophils % (A) 1 %; Eosinophils # (A) 0.2 k/uL (0-0.7); Eosinophils % (A) 3 %; HCT 34.3 % (34.0-46.0); HGB 11.1 gm/dL (11.4-16.0); Lymphocytes # (A) 1.6 k/uL (1.0-4.8); Lymphocytes % (A) 31 %; MCH 30.9 pg (25.0-35.0); MCHC 32.3 g/dL (31.0-37.0); MCV 95.7 fL (80.0-100.0); Mean Platelet Volume 7.9; Monocytes # (A) 0.4 k/uL (0-1.0); Monocytes % (A) 7 %; Neutrophils # (A) 2.9 k/uL (1.3-7.7); Neutrophils % (A) 56 %; Platelet Count 222 k/uL (150-450); RBC 3.59 m/uL (3.80-5.40); RDW 13.7 % (11.5-15.5); WBC 5.2 k/uL (3.8-10.6)
[2020-12-30] MEDS: KETOROLAC 15 MG/ML 1 ML VIAL IVP PRN (08:38)
[2020-12-30] MEDS: LACTATED RINGERS 1,000 ML IV SCH (08:42)
[2020-12-30] MEDS ORDERED: CHOLECALCIFEROL 25 MCG (1000 IU) TABLET PO SCH (09:00)
[2020-12-30] MEDS ORDERED: ASPIRIN 81 MG PO SCH (09:00)
[2020-12-30 10:05] LABS: African American GFR (CKD) 81.8 (60.0-200.0); Anion Gap 7.6 mmol/L (4.00-12.00); BUN/Creat Ratio 16.25 Ratio (12.00-20.00); Calcium 8.8 mg/dL (8.7-10.3); Carbon Dioxide 30.4 mmol/L (21.6-31.8); Non-African American GFR(CKD) 70.6 (60.0-200.0); Potassium 4.5 mmol/L (3.5-5.5)
[2020-12-30 11:49] VITALS: BP 133/54; PULSE 62; RESP 17; TEMP 98.1
== END 2020-12-30 12:45 | disposition home or self-care (01) ==
LOC: OR 07:12 → 5NMEDONC 14:55 → OR 12-30 12:45
PROVIDERS: ATTEND Orthopaedic Surgery Orthopaedic Surgery of the Spine
DX: M80.08XA Age-related osteoporosis with current pathological fracture, vertebra(e), initial encounter for fracture (principal); E78.5 Hyperlipidemia, unspecified; J30.9 Allergic rhinitis, unspecified; Z85.3 Personal history of malignant neoplasm of breast; I73.00 Raynaud's syndrome without gangrene; Z86.16 Personal history of COVID-19; Z79.899 Other long term (current) drug therapy; Z88.0 Allergy status to penicillin; Z87.891 Personal history of nicotine dependence; M51.16 Intervertebral disc disorders with radiculopathy, lumbar region; M48.061 Spinal stenosis, lumbar region without neurogenic claudication; M47.26 Other spondylosis with radiculopathy, lumbar region; Z79.82 Long term (current) use of aspirin; Z91.041 Radiographic dye allergy status
CPT/HCPCS: 97162; 80048; 83615; 84075; 85025; 85730; 72100; 22514; C1713; J2250; J0330; J2405; J2001; J3010; J1885 ×2; J2370; J2704; J1170; Q9966; 88307; 88311; 88341; 88342

== ENCOUNTER → 2022-01-12 | Outpatient (CLI) | payer MEDICARE, OTHER ==
--- NOTE | 2022-01-12 11:44 | FL ---
Exam Date: 01/12/2022 11:20 AM. Modified barium swallow for dysphagia. Consistencies administered: Various consistency of barium. Including thin and pudding Fluoro time: 59 seconds No images were sent to PACS. Please see speech pathology report.
== END | disposition home or self-care (01) ==
LOC: RADFLMAIN 10:49
PROVIDERS: ATTEND Family Medicine
DX: R13.10 Dysphagia, unspecified (principal)
CPT/HCPCS: 74230

== ENCOUNTER → 2022-04-01 | Outpatient (CLI) | payer MEDICARE, OTHER ==
--- NOTE | 2022-04-01 13:35 | MM ---
Reason for Exam: Clinical finding. Last mammogram was performed 3 year(s) and 0 month(s) ago. Indicated Problems: Lump or thickening of both sides. Patient History: Menarche at age 17. First Full-Term at age 20. Postmenopausal. Breast cancer, bilateral, at or over age 50. Previous chest radiation therapy. Maternal grandmother had breast cancer under age 50. Sister had breast cancer at or over age 50. Prior Study Comparison: 01/12/2017 Bilateral MG screening mammo w CAD - 2, [facility] [place]. 03/06/2018 Bilateral MG screening mammo w CAD - 2, [facility] [place]. 04/05/2019 Bilateral MG screening mammo w CAD - 2, [facility] [place]. Tissue Density: There are scattered fibroglandular densities. Findings: Analyzed By CAD. Postsurgical and posttreatment change of both breasts. Palpable marker placed along the upper outer quadrant of both breasts. Underlying the right-sided palpable marker, there is a spiculated masslike density suggestive of the patient's surgical scar, similar to prior studies. Possible more spiculation on the MLO view but overall similar sized in density. Benign bilateral vascular calcifications are noted. The right breast remains relatively smaller compared to the left breast. Overall Assessment: Incomplete: need additional imaging evaluation, BI-RAD 0 Management: Diagnostic Breast Ultrasound of both breasts. Electronically signed and approved by: Sigifredo Murry M.D. Radiologist
--- NOTE | 2022-04-01 14:45 | USB ---
Patient History: Menarche at age 17. First Full-Term at age 20. Postmenopausal. Breast cancer, bilateral, at or over age 50. Previous chest radiation therapy. Maternal grandmother had breast cancer under age 50. Sister had breast cancer at or over age 50. Prior Study Comparison: 01/12/2017 Bilateral MG screening mammo w CAD - 2, [facility] [place]. 03/06/2018 Bilateral MG screening mammo w CAD - 2, [facility] [place]. 04/05/2019 Bilateral MG screening mammo w CAD - 2, [facility] [place]. Findings: The whole breast of both breasts, the axilla of both breasts and the retroareolar of both breasts were scanned. A complete US of all four quadrants of both breast as well as the axilla and retro-areolar region were reviewed. Left: At the 12:00 position, 1 cm from the nipple, there is a 4 mm cystic lesion with some 2 mm mural based nodularity. Possible clumps of debris. Reassess and 6 months to exclude abnormal soft tissue. No other solid or cystic lesion or axillary lymphadenopathy. Right: At the 12:00 position, 4 cm from the nipple, there is a surgical scar measuring 7 x 7 x 4 mm. Linear scar extends from here to the skin surface. No other solid or cystic lesion or axillary lymphadenopathy. 6 month follow-up mammogram can reassess. In the slightly more spiculated appearance. Postsurgical change is favored. Overall Assessment: Probably benign, BI-RAD 3 Management: Diagnostic Breast Ultrasound of the left breast in 6 months. Diagnostic Mammogram of the right breast in 6 months. On the left, to reassess the tiny 4 mm cyst with either clumped up debris or nodular soft tissue. On the right, as a precautionary measure to reassess the suspected postsurgical scar. Results were given to the patient verbally at the time of exam. Electronically signed and approved by: Sigifredo Murry M.D. Radiologist
== END | disposition home or self-care (01) ==
LOC: RADMAMWWP 12:48
PROVIDERS: ATTEND Family Medicine
DX: N63.0 Unspecified lump in unspecified breast (principal); Z80.3 Family history of malignant neoplasm of breast; Z78.0 Asymptomatic menopausal state
CPT/HCPCS: 77066; 76641; G0279; 77062

== ENCOUNTER → 2022-08-16 | Outpatient (CLI) | payer MEDICARE, OTHER ==
[2022-08-16 15:31] LABS: African American GFR (CKD) >90 (>60 ml/min/1.73 sqM); Blood Urea Nitrogen 20 mg/dL (7-17); Non-African American GFR(CKD) 84 (>60 ml/min/1.73 sqM)
--- NOTE | 2022-08-16 16:38 | US ---
EXAMINATION TYPE: US carotid duplex BILAT DATE OF EXAM: 08/16/2022 COMPARISON: NONE CLINICAL HISTORY: R47.01 APHASIA. Right side body numbness TECHNIQUE: Carotid duplex ultrasound examination. Indirect Doppler criteria was utilized. FINDINGS: EXAM MEASUREMENTS: RIGHT: Peak Systolic Velocity (PSV) cm/sec ----- Right CCA: 85.3 ----- Right ICA: 99.6 ----- Right ECA: 114.7 ICA/CCA ratio: 1.2 RIGHT: End Diastole cm/sec ----- Right CCA: 11.7 ----- Right ICA: 13.8 ----- Right ECA: 0.0 LEFT: Peak Systolic Velocity (PSV) cm/sec ----- Left CCA: 60.7 ----- Left ICA: 141.1 ----- Left ECA: 106.9 ICA/CCA ratio: 2.3 LEFT: End Diastole cm/sec ----- Left CCA: 11.9 ----- Left ICA: 17.0 ----- Left ECA: 0.0 VERTEBRALS (direction of flow): Right Vertebral: Antegrade Left Vertebral: Antegrade Rhythm: Normal COMMERCIAL ACCOUNT MANAGER NOTES: Pt concerned of right side body numbness during exam- office was called at time of exam and tech spoke to Tamra. She was aware of pt's concerns. Slightly elevated velocities and slight abnormal ratio left side, otherwise no significant stenosis visualized IMPRESSION: 1. 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 2. Less than 50% stenosis of the right carotid bifurcation. Criteria for Assigning % of Stenosis / Diameter reduction (Estimation based on the indirect measurements of the internal carotid artery velocities (ICA PSV). 1. Normal (no stenosis)=ICA PSV < 125 cm/s: ratio < 2.0: ICA EDV<40 cm/s. 2. Less than 50% stenosis=ICA PSV < 125 cm/s: ratio < 2.0: ICA EDV<40 cm/s. 3. 50 to 69% stenosis=ICA PSV of 125 to 230 cm/s: ration 2.0 ? 4.0: ICA EDV 40-100 cm/s. 4. Greater than 70% stenosis to near occlusion= ICA PSV > 230 cm/s: ratio > 4.0: ICA EDV > 100 cm/s. 5. Near occlusion= ICA PSV velocities may be low or undetectable: variable ratio and ICA EDV. 6. Total occlusion=unable to detect flow.
--- NOTE | 2022-08-16 21:56 | CT ---
EXAMINATION TYPE: CT brain wo/w con CT DLP: 5.8 mGycm, Automated exposure control for dose reduction was used. DATE OF EXAM: 08/16/2022 5:16 PM COMPARISON: None CLINICAL INDICATION:Female, 81 years old with history of I10 HTN R41.3 R47.01, memory loss, confusio n, numbness to extremities TECHNIQUE: Axial CT images of the brain were obtained with coronal and sagittal reformats created and reviewed. Contrast used:100 mL of Isovue 300 without and with IV Contrast, Oral contrast used: none. FINDINGS: Extra-axial spaces: No abnormal extra-axial fluid collections. Ventricular system: Dilatation in proportion to cerebral atrophy. Cerebral parenchyma: Cerebral atrophy. No acute intraparenchymal hemorrhage or mass effect. The cole -white junction is well differentiated. No abnormal enhancement is seen after the administration of i ntravenous contrast. Cerebellum: Unremarkable. Mass effect: No evidence of midline shift. Intracranial vasculature: Atherosclerotic calcifications of the intracranial vessels. No evidence for high-grade stenosis or aneurysm. Soft tissues: Normal. Calvarium/osseous structures: No depressed skull fracture. Paranasal sinuses and mastoid air cells: Clear. Visualized orbits: Orbital contents are intact. IMPRESSION: 1. No acute intracranial process and no evidence to suggest intracranial mass. 2. Nonspecific white matter changes, likely secondary to chronic small vessel ischemic disease.
--- NOTE | 2022-08-17 09:53 | CA ---
Transthoracic Echo Report Name: Rosa Birmingham Age: 81 Gender: F : 1940 Exam Date: 08/16/2022 15:16 Exam Location: [facility] Ht (in): 63 Wt (lb): 117 Ordering Physician: Juan A Garg DO Attending/Referring Phys: Warp Hand Daniele Tracey RDCS Procedure CPT: Indications: I10 HTN R41.3 R47.01 Cardiac Hx: HTN; Parkinsonism Technical Quality: Good Contrast 1: Total Dose (mL): Contrast 2: Total Dose (mL): MEASUREMENTS (Male / Female) Normal Values 2D ECHO LV Diastolic Diameter PLAX 4.6 cm 4.2 - 5.9 / 3.9 - 5.3 cm LV Systolic Diameter PLAX 3.5 cm LV Fractional Shortening PLAX 24.8 % IVS Diastolic Thickness 0.8 cm 0.6 - 1.0 / 0.6 - 0.9 cm IVS Systolic Thickness 0.8 cm LVPW Diastolic Thickness 0.8 cm 0.6 - 1.0 / 0.6 - 0.9 cm LVPW Systolic Thickness 1.0 cm LV Relative Wall Thickness 0.3 RV Internal Dim ED PLAX 2.5 cm LVOT Diameter 2.0 cm LA Systolic Diameter LX 2.9 cm 3.0 - 4.0 / 2.7 - 3.8 cm LV Diastolic Volume MOD BP 71.6 cm??? 67 - 155 / 56 - 104 cm??? LV Systolic Volume MOD BP 26.2 cm??? 22 - 58 / 19 - 49 cm??? LV Ejection Fraction MOD BP 63.4 % >= 55 % LV Stroke Volume MOD BP 45.4 cm??? LV Diastolic Volume MOD 4C 59.4 cm??? LV Systolic Volume MOD 4C 19.3 cm??? LV Ejection Fraction MOD 4C 67.6 % LV Stroke Volume MOD 4C 40.1 cm??? LV Diastolic Length 4C 6.5 cm LV Systolic Length 4C 4.6 cm LV Diastolic Volume MOD 2C 81.7 cm??? LV Systolic Volume MOD 2C 28.6 cm??? LV Ejection Fraction MOD 2C 65.0 % LV Stroke Volume MOD 2C 53.1 cm??? LV Diastolic Length 2C 6.9 cm LV Systolic Length 2C 5.8 cm LA Area 4C View 18.1 cm??? <= 20 cm??? LA Volume 51.6 cm??? 18 - 58 / 22 - 52 cm??? M-MODE Aortic Root Diameter MM 2.9 cm LA Systolic Diameter MM 3.1 cm LA Ao Ratio MM 1.1 MV E Point Septal Separation 1.0 cm AV Cusp Separation MM 1.9 cm DOPPLER AV Peak Velocity 110.3 cm/s AV Peak Gradient 4.9 mmHg MV Peak Velocity 98.6 cm/s MV Peak Gradient 3.9 mmHg MV Mean Velocity 66.0 cm/s MV Mean Gradient 1.9 mmHg MV Velocity Time Integral 21.6 cm MV Deceleration Real 490.7 cm/s??? MV Pressure Half Time 46.3 ms MV Area PHT 4.8 cm??? Mitral E Point Velocity 78.3 cm/s Mitral A Point Velocity 85.5 cm/s Mitral E to A Ratio 0.9 MV Deceleration Time 159.6 ms MV E' Velocity 7.3 cm/s Mitral E to MV E' Ratio 10.7 TR Peak Velocity 254.1 cm/s TR Peak Gradient 25.8 mmHg Right Ventricular Systolic Press 33.8 mmHg PV Peak Velocity 86.1 cm/s PV Peak Gradient 3.0 mmHg PI Peak Gradient 11.6 mmHg FINDINGS Left Ventricle Left ventrgrade 1 diastolic dysfunction. Normal systolic function. ejection fraction is estimated at 55-60 %. Borderline left ventricular hypertrophy. Right Ventricle Normal right ventricular size and function. RVSP- 34 mm Hg. Right Atrium Mild right atrial dilatation. Left Atrium Mild left atrial dilatation. Mitral Valve Mitral valve thickened. Mild mitral regurgitation. Aortic Valve Trileaflet aortic valve. Mild thickening (sclerosis) of the aortic valve cusps without reduced excursion. Tricuspid Valve Aaha-pc-[id number] tricuspid regurgitation. Pulmonic Valve Mild pulmonic regurgitation. Pericardium Normal pericardium. No pericardial effusion. Aorta Normal size aortic root and proximal ascending aorta. CONCLUSIONS Normal LV size and systolic function. Mild concentric LVH. Mild to moderate mitral and moderate tricuspid regurgitation. No pericardial effusion Previewed by: Dr. Arabella Sanchez MD (Electronically Signed) Final Date: 17 August 2022 09:52
== END | disposition home or self-care (01) ==
LOC: RADECHMAIN 14:40
PROVIDERS: ATTEND Family Medicine
DX: I65.23 Occlusion and stenosis of bilateral carotid arteries (principal); R90.82 White matter disease, unspecified; I10 Essential (primary) hypertension; R41.3 Other amnesia; R47.01 Aphasia
CPT/HCPCS: 93306; 82565; 84520; 93880; 70470; 36415; Q9967

== ENCOUNTER → 2022-09-30 | Outpatient (CLI) | payer MEDICARE, OTHER ==
--- NOTE | 2022-09-30 14:16 | MM ---
Reason for Exam: Follow-up at short interval from prior study. Last screening mammogram was performed 6 month(s) ago. Patient History: Menarche at age 17. First Full-Term at age 20. Postmenopausal. Breast cancer, right, at or over age 50. Breast cancer, left, at or over age 50. Previous chest radiation therapy. Maternal grandmother had breast cancer under age 50. Maternal aunt had breast cancer at or over age 50. Sister had breast cancer at or over age 50. Prior Study Comparison: 01/12/2017 Bilateral MG screening mammo w CAD - 2, [facility] [place]. 03/06/2018 Bilateral MG screening mammo w CAD - 2, [facility] [place]. 04/05/2019 Bilateral MG screening mammo w CAD - 2, [facility] [place] 04/01/2022 Bilateral MG 3D diag mammo w/cad Y[facility], [facility]. 04/01/2022 Bilateral US breast BILAT, [facility]. Tissue Density: There are scattered fibroglandular densities. Findings: Analyzed By CAD. Postsurgical and posttreatment changes right breast. Redemonstrated spiculated density posterior upper quadrant right breast which correlates with the patient's surgical scar. It continues to appear more pronounced from older priors but unchanged for 6 months. Adjacent focal asymmetry centrally in the right breast is also unchanged. Benign bilateral vascular calcifications. Overall Assessment: Incomplete: need additional imaging evaluation, BI-RAD 0 Management: Diagnostic Breast Ultrasound of the left breast. Electronically signed and approved by: Sigifredo Murry M.D. Radiologist
--- NOTE | 2022-09-30 14:30 | USB ---
Reason for Exam: Follow-up at short interval from prior study. Patient History: Menarche at age 17. First Full-Term at age 20. Postmenopausal. Breast cancer, right, at or over age 50. Breast cancer, left, at or over age 50. Previous chest radiation therapy. Maternal grandmother had breast cancer under age 50. Maternal aunt had breast cancer at or over age 50. Sister had breast cancer at or over age 50. Technique: Method: Targeted. Prior Study Comparison: 03/06/2018 Bilateral MG screening mammo w CAD - 2, [facility] [place]. 04/05/2019 Bilateral MG screening mammo w CAD - 2, [facility] [place]. 04/01/2022 Bilateral MG 3D diag mammo w/cad YANIQUE, [facility]. Findings: The upper outer quadrant of the left breast, the axilla of the left breast and the retroareolar of the left breast were scanned. Targeted ultrasound left breast upper outer quadrant 12:00 to 3:00 position including the subareolar region at axilla. Redemonstrated at the 12:00 position, 1 cm from the nipple, there is a tiny cyst measuring 3 mm with some minimal internal echoes/debris. Overall, the area is a millimeter smaller. This suggests a benign etiology, in particular, cyst with debris. No other solid or cystic lesion. Overall Assessment: Probably benign, BI-RAD 3 Management: Diagnostic Mammogram of the right breast in 6 months. A clinical breast exam by your physician is recommended on an annual basis and results should be correlated with mammographic findings. This exam should not preclude additional follow-up of suspicious palpable abnormalities. Results were given to the patient verbally at the time of exam. Electronically signed and approved by: Sigifredo Murry M.D. Radiologist
--- NOTE | 2022-09-30 15:11 | XR ---
EXAMINATION TYPE: XR cervical spine comp DATE OF EXAM: 09/30/2022 COMPARISON: None HISTORY: Pain TECHNIQUE: 5 view cervical spine FINDINGS: Degenerative disc changes present C3-4 through C6-7. Minimal posterior endplate spurring is present C3-4 C4-5 C5-6. Posterior spinal lamellar line is intact. Prevertebral space is normal. Mild foraminal narrowing is present right C4-5 C5-6 and C6-7. Mild diffuse foraminal narrowing is present C3-4 C4-5 C5-6 and C6-7 on the left. Odontoid is visualized appears normal. IMPRESSION: 1. Degenerative disc change and mild bilateral foraminal narrowing discussed above. Follow-up MRI ca n be performed as clinically indicated
== END | disposition home or self-care (01) ==
LOC: RADMAMWWP 12:26
PROVIDERS: ATTEND Family Medicine
DX: R92.8 Other abnormal and inconclusive findings on diagnostic imaging of breast (principal); M50.31 Other cervical disc degeneration, high cervical region; M99.71 Connective tissue and disc stenosis of intervertebral foramina of cervical region; Z78.0 Asymptomatic menopausal state; Z80.3 Family history of malignant neoplasm of breast; Z92.3 Personal history of irradiation
CPT/HCPCS: 72050; 77066; 76642; G0279; 77062

== ENCOUNTER → 2022-09-30 | Outpatient (CLI) | payer MEDICARE, OTHER | END | disposition home or self-care (01) | LOC: RADXRMAIN 14:25 | PROVIDERS: ATTEND Family Medicine | DX: Z53.9 Procedure and treatment not carried out, unspecified reason (principal) ==

== ENCOUNTER → 2022-10-30 | Outpatient (CLI) | payer MEDICARE, OTHER ==
--- NOTE | 2022-10-31 09:59 | MR ---
EXAMINATION TYPE: MR cervical spine wo con DATE OF EXAM: 10/30/2022 INDICATION: Patient age: Female; 82 years old; Reason for study: M50.30; [facility]. Neck pain, numbness into rt arm COMPARISON: Radiograph 09/30/2022 TECHNIQUE: Multi planar, multi sequence imaging was performed utilizing: T1-weighted, T2-weighted, an d turbo inversion recovery imaging of the cervical spine. IV Contrast: None FINDINGS: Alignment: The cervical vertebral bodies have preserved heights. Alignment is within normal limits gi josé miguel patient positioning. Bones: Bone signal is within normal limits. No abnormal bone marrow edema on inversion recovery seque nces. Mild degeneration to osteophyte formation disc space narrowing. Cord: The spinal cord is unremarkable with regards to their signal intensity and morphology. Discs: Multilevel disc desiccation is present. C2-C3: No significant disc pathology. The spinal canal is patent. No neural foraminal stenosis. C3-C4: A disc osteophyte complex is present which minimally narrows the ventral subarachnoid space. Bilateral facet and uncovertebral joint arthropathy are present with mild to moderate bilateral neur al foraminal stenosis. C4-C5: A disc osteophyte complex is present which minimally narrows the ventral subarachnoid space. Bilateral facet and uncovertebral joint arthropathy are present with mild to moderate bilateral neur al foraminal stenosis. C5-C6: No significant disc pathology. The spinal canal is patent. Bilateral facet and uncovertebral joint arthropathy are present with moderate bilateral neural foraminal stenosis. C6-C7: No significant disc pathology. The spinal canal is patent. Bilateral facet and uncovertebral joint arthropathy are present with moderate left and mild right neural foraminal stenosis. C7-T1: No significant disc pathology. The spinal canal is patent. No neural foraminal stenosis. Other: None. IMPRESSION: 1. No evidence for disc herniation or significant spinal canal stenosis. 2. Mild disc degeneration with associated osteoarthritic changes with multilevel at least moderate ne ural foraminal stenosis.
== END | disposition home or self-care (01) ==
LOC: RADMRIMAIN 12:45
PROVIDERS: ATTEND Family Medicine
DX: M48.02 Spinal stenosis, cervical region (principal); M50.30 Other cervical disc degeneration, unspecified cervical region
CPT/HCPCS: 72141

== ENCOUNTER → 2022-11-04 | Outpatient (CLI) | payer MEDICARE, OTHER ==
--- NOTE | 2022-11-04 18:22 | MR ---
EXAMINATION TYPE: MR brain wo con DATE OF EXAM: 11/04/2022 COMPARISON: None HISTORY: 82-year-old female I63.9, I65.2, Ataxia, CVA, coordination problems TECHNIQUE: Multiplanar, multisequence images of the brain and brainstem were acquired without IV con trast. Diffusion weighted imaging is performed. FINDINGS: No evidence for acute infarction, hemorrhage, mass, mass effect, midline shift, herniation, effacemen t of basal cisterns, or extra-axial fluid collection. There is moderate generalized supratentorial volume loss. Secondary mild ventriculomegaly, Tavo's rat io calculated at 0.32. Major intracranial flow voids are intact. T2/FLAIR weighted sequences show moderate to severe scattered foci of bright white matter change thro ughout the subcortical, deep, and periventricular regions of both hemispheres. Additional patchy incr eased signal change within the bilateral paramedian cara. Midline structures demonstrate normal morphology. The craniocervical junction is normal. Mild mucosal thickening ethmoid air cells. Globes are intact. IMPRESSION: Mild to moderate scattered burden of chronic small vessel ischemic disease. Moderate generalized cere bral atrophy. Mild ventricular prominence likely secondary to central cerebral volume loss. No acute intracranial abnormality seen.
--- NOTE | 2022-11-05 10:19 | MR ---
EXAMINATION TYPE: MR angio head wo/neck wo/w con DATE OF EXAM: 11/04/2022 COMPARISON: NONE HISTORY: Ataxia, CVA, coordination problems TECHNIQUE: Utilizing 3-D xula-wx-hqzygy intracranial MRA of the [place] and neck was performed. CONTRAST: 5.5ml gadavist FINDINGS: Exam limited by motion artifact. The vertebrobasilar and carotid systems are patent. There is no sizable aneurysm or vascular malform ation. The vertebral arteries are symmetric in size. There is mild irregularity along the cavernous segments of the ICA and carotid siphon likely in the basis of atherosclerotic disease with no signifi cant stenosis. There is mild atherosclerotic plaque measuring approximately 40-50% involving the left carotid bifurc ation with no significant stenosis. The right carotid bifurcation is widely patent with no significant disease. Utilized portions of the vertebral arteries are patent. Intracranially there is moderate degenerative change. IMPRESSION: 1. No evidence of vascular malformation or sizable aneurysm. 2. There is mild atherosclerotic disease measuring approximately 40% at the left carotid bifurcation with no significant stenosis bilaterally.
== END | disposition home or self-care (01) ==
LOC: RADMRIMAIN 11:21
PROVIDERS: ATTEND Psychiatry & Neurology Neurology
DX: I65.23 Occlusion and stenosis of bilateral carotid arteries (principal); I63.9 Cerebral infarction, unspecified; I67.82 Cerebral ischemia; G31.9 Degenerative disease of nervous system, unspecified
CPT/HCPCS: 70544; 70549; 70551; A9585

== ENCOUNTER 2023-05-01 13:16 | Emergency (ER) | payer OTHER, MEDICARE ==
[2023-05-01 13:26] VITALS: RESP 18
[2023-05-01] MEDS ORDERED: MORPHINE SULFATE 2 MG/ML SYRINGE IVP STA (13:40)
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
[2023-05-01 15:18] VITALS: BP 158/69; PULSE 78; TEMP 98
== END 2023-05-01 16:04 | disposition home or self-care (01) ==
LOC: EC 13:16
DX: S16.1XXA Strain of muscle, fascia and tendon at neck level, initial encounter (principal); I10 Essential (primary) hypertension; Z79.82 Long term (current) use of aspirin; Z79.899 Other long term (current) drug therapy; Z88.0 Allergy status to penicillin; Z91.09 Other allergy status, other than to drugs and biological substances; Z86.16 Personal history of COVID-19; V49.40XA Driver injured in collision with unspecified motor vehicles in traffic accident, initial encounter; Y92.410 Unspecified street and highway as the place of occurrence of the external cause
CPT/HCPCS: 72125; 70450; 99284; 96374; J2270

== ENCOUNTER → 2023-05-05 | Outpatient (CLI) | payer MEDICARE, OTHER ==
--- NOTE | 2023-05-05 14:36 | MM ---
Reason for Exam: Follow-up at short interval from prior study. Last mammogram was performed 1 year(s) and 1 month(s) ago. Indicated Problems: Lump or thickening of the right side for 3 Year(s). Patient History: Menarche at age 17. First Full-Term at age 20. Postmenopausal. Breast cancer, right, at or over age 50. Breast cancer, left, at or over age 50. Previous chest radiation therapy. Maternal grandmother had breast cancer under age 50. Maternal aunt had breast cancer at or over age 50. Sister had breast cancer at or over age 50. Prior Study Comparison: 04/05/2019 Bilateral MG screening mammo w CAD - 2, [facility] [place]. 04/01/2022 Bilateral MG 3D diag mammo w/cad YANI[facility], [facility]. 09/30/2022 Bilateral MG 3D diag mammo w/cad YANIQUE, [facility]. Tissue Density: Right: There are scattered fibroglandular densities. Findings: Analyzed By CAD. Redemonstrated are postsurgical and posttreatment changes right breast with spiculated focal asymmetry posterior upper quadrant. Adjacent more centrally located secondary of spiculated focal asymmetry. Findings unchanged for a total of 1 year. Reassess at the patient's annual follow-up. Overall Assessment: Probably benign, BI-RAD 3 Management: Diagnostic Mammogram of both breasts in 6 months. . Results were given to the patient verbally at the time of exam. Patient should continue monthly self-breast exams. A clinical breast exam by your physician is recommended on an annual basis. This exam should not preclude additional follow-up of suspicious palpable abnormalities. Electronically signed and approved by: Sigifredo Murry M.D. Radiologist
== END | disposition home or self-care (01) ==
LOC: RADMAMWWP 13:32
PROVIDERS: ATTEND Family Medicine
DX: R92.321 Mammographic fibroglandular density, right breast (principal); Z80.3 Family history of malignant neoplasm of breast; Z85.3 Personal history of malignant neoplasm of breast; Z78.0 Asymptomatic menopausal state
CPT/HCPCS: 77065; G0279; 77061

== ENCOUNTER → 2024-01-24 | Outpatient (CLI) | payer MEDICARE ==
--- NOTE | 2024-01-24 09:24 | MM ---
Reason for Exam: Follow-up at short interval from prior study. Last mammogram was performed 1 year(s) and 10 month(s) ago. Patient History: Menarche at age 17. First Full-Term at age 20. Postmenopausal. Breast cancer, right, at or over age 50. Breast cancer, left, at or over age 50. Previous chest radiation therapy. Maternal grandmother had breast cancer under age 50. Maternal aunt had breast cancer at or over age 50. Sister had breast cancer at or over age 50. Prior Study Comparison: 01/12/2017 Bilateral MG screening mammo w CAD - 2, [facility] [place]. 03/06/2018 Bilateral MG screening mammo w CAD - 2, [facility] [place]. 04/05/2019 Bilateral MG screening mammo w CAD - 2, [facility] [place]. 04/01/2022 Bilateral MG 3D diag mammo w/cad YANIQUE, [facility]. 04/01/2022 Bilateral US breast BILAT, [facility]. 09/30/2022 Bilateral MG 3D diag mammo w/cad YANIQUE, [facility]. 09/30/2022 Left US breast limited LT, [facility]. 05/05/2023 Right MG 3D diag mammo w/cad RT, [facility]. Tissue Density: The breasts are heterogeneously dense, which may obscure small masses. Findings: Analyzed By CAD. Status post operative lumpectomy changes bilaterally remain stable. No new masses seen. No suspicious calcifications present. Overall Assessment: Benign, BI-RAD 2 Management: Diagnostic Mammogram of both breasts in 1 year. . Results were given to the patient verbally at the time of exam. Patient should continue monthly self-breast exams. A clinical breast exam by your physician is recommended on an annual basis. This exam should not preclude additional follow-up of suspicious palpable abnormalities. Note on Sarah scores and lifetime risk: 1. A Sarah score greater than 3% is considered moderate risk. If this is the case, consider specialist referral to assess eligibility for a risk reducing agent. 2. If overall lifetime risk for the development of breast cancer is 20% or higher, the patient may qualify for future screening with alternating mammogram and breast MRI. Electronically signed and approved by: Aaron Weaver M.D. Radiologis
== END | disposition home or self-care (01) ==
LOC: RADMAMWWP 08:49
PROVIDERS: ATTEND Family Medicine
DX: Z85.3 Personal history of malignant neoplasm of breast
CPT/HCPCS: 77062; 77066